=== PATIENT | female | born 1930 | race Caucasian/White ===

== ENCOUNTER 2017-07-09 20:08 | Observation (INO) | payer MEDICARE, BC ==
[~2017-07-09] VITALS: Ht 160 cm; Wt 130.0 kg
[~2017-07-09 20:08] MED LIST: ACET-75 PO; ALBU2.5V13 NEB; ASPI81TA30 PO; ATOR20TA66 PO; CALC500T12 PO; CARCD120C PO; CARV6.253 PO; CHOL100046 PO; CITA10TA9 PO; DICL100G15 TP; DOCU100C41 PO; LISI10TA4 PO; LORA0.5T PO; LORA10TA7 PO; MAGN800O PO; MELA3TAB PO; METH500T PO; MULT1TAB74 PO; NICO1PAT40 TP; NITR0.4T48 SL; PANT-47 PO; POLY119P2 PO; TICA90TA PO; TRAM50TA2 PO
[2017-07-09] MEDS ORDERED: albuterol 2.5 MG/3 ML nebule NEB ONE (20:40)
[2017-07-09 20:46] LABS: BASOPHILS % (AUTO) 0.4 % (0-1); EOSINOPHILS # (AUTO) 0.3 X10'3 (0-0.9); EOSINOPHILS % (AUTO) 3.3 % (0-6); HEMATOCRIT 34.4 % (35.0-45.0); HEMOGLOBIN 11.3 g/dl (12.0-16.0); LYMPHOCYTES # (AUTO) 1.6 X10'3 (1.1-4.8); MEAN CORPUSCULAR HEMOGLOBIN 28.6 PG (27.0-31.0); MEAN CORPUSCULAR HGB CONC 32.7 % (33.0-36.5); MEAN CORPUSCULAR VOLUME 87.3 FL (78-98); MEAN PLATELET VOLUME 7.3 FL (7.4-10.4); MONOCYTES % (AUTO) 10.9 % (2-12); NEUTROPHILS % (AUTO) 67.4 % (42-75); PLATELET COUNT 350 X10'3 (140-440); RED BLOOD COUNT 3.94 X10'6 (4.20-5.60); RED CELL DISTRIBUTION WIDTH 14.5 % (11.5-14.5); WHITE BLOOD COUNT 8.9 X10'3 (4.5-11.0)
[2017-07-09 20:57] LABS: INR 0.9 INR; PARTIAL THROMBOPLASTIN TIME 26 SECONDS (22-32); PROTHROMBIN TIME 9.8 SECONDS (9.0-12.0)
[2017-07-09 21:01] LABS: ALANINE AMINOTRANSFERASE 17 U/L (12-78); ALBUMIN 3.2 G/DL (3.4-5.0); ALBUMIN/GLOBULIN RATIO 0.9 (1.1-1.5); ALKALINE PHOSPHATASE 145 IU/L (46-116); ASPARTATE AMINO TRANSFERASE 13 U/L (10-37); BILIRUBIN,TOTAL 0.2 MG/DL (0.1-1.0); BLOOD UREA NITROGEN 21 MG/DL (7-18); BUN/CREATININE RATIO 29.2 (6.6-38.0); CALCIUM 8.8 MG/DL (8.5-10.1); CREATININE 0.72 MG/DL (0.40-0.90); GLUCOSE 119 MG/DL (70-104); POTASSIUM 4.4 MMOL/L (3.5-5.1); TOTAL PROTEIN 6.9 G/DL (6.4-8.2); eGFR 77 ML/MIN
[2017-07-09 21:08] LABS: ANION GAP 4 (8-16); CHLORIDE 102 MMOL/L (99-107); SODIUM 136 MMOL/L (135-145); TOTAL CARBON DIOXIDE 30.5 MMOL/L (24-32)
[2017-07-09] MEDS ORDERED: acetaminophen 325mg tablet PO ONE (22:45)
[2017-07-09] MEDS ORDERED: ISOS30TA9 PO (22:56)
[2017-07-09] MEDS ORDERED: CLOP75TA35 PO (22:56)
[2017-07-09] MEDS ORDERED: BISM262T14 PO (22:56)
[2017-07-09] MEDS ORDERED: OSC500T PO (22:56)
[2017-07-09] MEDS ORDERED: DICL100G15 TOP (22:56)
[2017-07-09] MEDS ORDERED: ACET-71 PO (22:56)
[2017-07-09] MEDS ORDERED: [UNRECOGNIZED DRUG - CODE] PO (22:56)
[2017-07-09] MEDS ORDERED: LISI-600 PO (22:56)
[2017-07-09] MEDS ORDERED: BISA-155 PO (22:56)
[2017-07-09] MEDS ORDERED: HYDR-565 PO (22:56)
[2017-07-09] MEDS ORDERED: ACET500C5 PO (22:56)
[2017-07-09] MEDS ORDERED: OMEP40CA37 PO (22:56)
[2017-07-10] MEDS ORDERED: normal saline 1000ml 1,000 ML IV SCH (00:01)
[2017-07-10] MEDS ORDERED: albuterol 2.5 MG/3 ML nebule NEB PRN (00:05)
[2017-07-10] MEDS ORDERED: acetaminophen 325mg tablet PO PRN (00:05)
[2017-07-10] MEDS ORDERED: ondansetron/PF 4mg/2ml inj IV PRN (00:05)
[2017-07-10] MEDS ORDERED: magnesium hydroxide 30ml (MOM) UD suspension PO PRN (00:05)
[2017-07-10] MEDS ORDERED: mag hydrox/Alum hydrox/simeth 30ml oral suspension PO PRN (00:05)
[2017-07-10 03:00] VITALS: BP 174/59
[2017-07-10 06:00] VITALS: BP 159/52
[2017-07-10] MEDS ORDERED: carvedilol 6.25mg tablet PO SCH (07:30)
[2017-07-10] MEDS ORDERED: pantoprazole 40mg Tablet.DR PO SCH (07:30)
[2017-07-10] MEDS ORDERED: isosorbide dinitrate 30mg tablet PO SCH (08:00)
[2017-07-10] MEDS ORDERED: atorvastatin 20mg tablet PO SCH (08:00)
[2017-07-10] MEDS ORDERED: heparin, porcine 5000 units/ml vial SQ SCH (08:00)
[2017-07-10] MEDS ORDERED: lisinopril 20mg tablet PO SCH (08:00)
[2017-07-10] MEDS ORDERED: clopidogrel 75mg tablet PO SCH (08:00)
[2017-07-10] MEDS ORDERED: CITALOpram 10mg tablet PO SCH (08:00)
[2017-07-10] MEDS ORDERED: aspirin 81mg tab.chew PO SCH (08:30)
[2017-07-10] MEDS ORDERED: OXYB5TAB11 PO (09:21)
[2017-07-10 10:00] VITALS: BP 138/45
== END 2017-07-10 12:40 | disposition home or self-care (01) ==
LOC: ER 20:09 → ED HOLD 07-10 00:01 → ORTHO 4S 07-10 02:42
PROVIDERS: ADMIT Internal Medicine; ATTEND Internal Medicine
DX: R07.89 Other chest pain (principal); R13.10 Dysphagia, unspecified; F41.9 Anxiety disorder, unspecified; E78.5 Hyperlipidemia, unspecified; I10 Essential (primary) hypertension; I25.10 Atherosclerotic heart disease of native coronary artery without angina pectoris; N32.81 Overactive bladder; F03.90 Unspecified dementia, unspecified severity, without behavioral disturbance, psychotic disturbance, mood disturbance, and anxiety; J44.1 Chronic obstructive pulmonary disease with (acute) exacerbation; K21.9 Gastro-esophageal reflux disease without esophagitis; J18.9 Pneumonia, unspecified organism; M54.9 Dorsalgia, unspecified; G89.29 Other chronic pain; Z87.891 Personal history of nicotine dependence; Z90.49 Acquired absence of other specified parts of digestive tract; Z90.710 Acquired absence of both cervix and uterus; Z99.81 Dependence on supplemental oxygen
CPT/HCPCS: 36415; 71045; 76700; 80053; 83880; 84484; 85025; 85610; 85730; 87070; 93005; 94640; 94760; 96360; 96372; 99285; G0378; J1644; J7030

== ENCOUNTER 2017-10-19 10:42 | Outpatient (CLI) | payer MEDICARE, BC ==
[~2017-10-19 10:42] MED LIST changes: +ACET-71 PO; +ACET500C5 PO; +BISA-155 PO; +BISM262T14 PO; -CARCD120C PO; +CLOP75TA35 PO; +DICL100G15 TOP; -DOCU100C41 PO; +HYDR-565 PO; +ISOS30TA9 PO; +LISI-600 PO; -LISI10TA4 PO; -LORA0.5T PO; -MELA3TAB PO; -METH500T PO; -NICO1PAT40 TP; +OMEP40CA37 PO; +OSC500T PO; +OXYB5TAB11 PO; -PANT-47 PO; -POLY119P2 PO; -TICA90TA PO; -TRAM50TA2 PO; +[UNRECOGNIZED DRUG - CODE] PO
[2017-10-19] MEDS ORDERED: BARIUM SULFATE 340 ML SUSP.RECON***PROCEDURE AREA ONLY**DONT ENTER PO ONE ×2 (10:45→11:00)
== END 2017-10-19 23:59 | disposition home or self-care (01) ==
LOC: RAD 10:42
PROVIDERS: ATTEND Internal Medicine
DX: R13.13 Dysphagia, pharyngeal phase (principal); J44.9 Chronic obstructive pulmonary disease, unspecified; Z90.710 Acquired absence of both cervix and uterus; Z87.891 Personal history of nicotine dependence; Z90.49 Acquired absence of other specified parts of digestive tract; Z79.82 Long term (current) use of aspirin
CPT/HCPCS: 74220

== ENCOUNTER 2018-01-08 15:21 | Emergency (ER) | payer MEDICARE, BC ==
[~2018-01-08 15:21] MED LIST changes: +HYDR-4353 PO; -HYDR-565 PO
[2018-01-08 16:19] LABS: BASOPHILS % (AUTO) 0.1 % (0-1); EOSINOPHILS % (AUTO) 0.2 % (0-6); HEMATOCRIT 39.1 % (35.0-45.0); HEMOGLOBIN 12.6 g/dl (12.0-16.0); LYMPHOCYTES # (AUTO) 0.9 X10'3 (1.1-4.8); MEAN CORPUSCULAR HEMOGLOBIN 27.9 PG (27.0-31.0); MEAN CORPUSCULAR HGB CONC 32.3 % (33.0-36.5); MEAN CORPUSCULAR VOLUME 86.3 FL (78-98); MEAN PLATELET VOLUME 7.4 FL (7.4-10.4); MONOCYTES # (AUTO) 0.9 X10'3 (0-0.9); MONOCYTES % (AUTO) 8.5 % (2-12); NEUTROPHILS # (AUTO) 9.3 X10'3 (1.8-7.7); NEUTROPHILS % (AUTO) 83.2 % (42-75); PLATELET COUNT 382 X10'3 (140-440); RED BLOOD COUNT 4.53 X10'6 (4.20-5.60); RED CELL DISTRIBUTION WIDTH 15.8 % (11.5-14.5); WHITE BLOOD COUNT 11.2 X10'3 (4.5-11.0)
[2018-01-08 16:35] LABS: ALANINE AMINOTRANSFERASE 17 U/L (12-78); ALBUMIN 3.6 G/DL (3.4-5.0); ALBUMIN/GLOBULIN RATIO 0.9 (1.1-1.5); ALKALINE PHOSPHATASE 146 IU/L (46-116); ANION GAP 5 (8-16); ASPARTATE AMINO TRANSFERASE 16 U/L (10-37); BILIRUBIN,TOTAL 0.4 MG/DL (0.1-1.0); BLOOD UREA NITROGEN 17 MG/DL (7-18); BUN/CREATININE RATIO 20.5 (6.6-38.0); CALCIUM 9.5 MG/DL (8.5-10.1); CHLORIDE 91 MMOL/L (99-107); CREATININE 0.83 MG/DL (0.40-0.90); GLUCOSE 118 MG/DL (70-104); POTASSIUM 4.4 MMOL/L (3.5-5.1); SODIUM 131 MMOL/L (135-145); TOTAL CARBON DIOXIDE 35.1 MMOL/L (24-32); TOTAL PROTEIN 7.8 G/DL (6.4-8.2); eGFR 65 ML/MIN
[2018-01-08 16:36] LABS: ABG BASE EXCESS 7.6 mmol/L (-2.0-3.0); ABG HCO3 34.4 mmol/L (22.0-26.0); ABG OXYGEN SATURATION 92.4 % (95-98); ABG PCO2 (T) 58.7 mmHg (32.0-45.0); ABG PH (T) 7.386 (7.350-7.450); ABG PO2 (T) 67.7 mmHg (83-108); FCOHb 1.3 % (0.5-1.5); FLOW 4 L/min; FMetHb 0.3 % (0.3-1.12); FO2Hb 90.9 % (94-100); RESPIRATORY RATE (OBSERVED) 16 b/min; TOTAL HEMOGLOBIN 12.8 G/dl (12.0-16.0)
[2018-01-08 16:45] LABS: PARTIAL THROMBOPLASTIN TIME 29 SECONDS (22-32); PROTHROMBIN TIME 9.9 SECONDS (9.0-12.0)
[2018-01-08 17:25] LABS: CLARITY,URINE SLIGHTLY CLOUDY (Clear); COLOR,URINE YELLOW (Yellow); GLUCOSE, URINE NEGATIVE (Neg); KETONES,URINE NEGATIVE (Neg); LEUKOCYTE ESTERASE ,URINE NEGATIVE (Neg); NITRITES, URINE NEGATIVE (Neg); OCCULT BLOOD,URINE NEGATIVE (Neg); PROTEIN,URINE 100 mg/dl (Neg); UROBILINOGEN,URINE 0.2 E.U/dL (0.2-1.0)
[2018-01-08 17:31] LABS: UA COLLECTION TYPE STRAIGHT CATH
[2018-01-08 17:33] LABS: COARSE GRANULAR CAST 0-3 /LPF (NEGATIVE); SQUAMOUS EPITHELIAL CELL,UR FEW /LPF (FEW)
[2018-01-08 17:34] LABS: BACTERIA,URINE FEW /HPF (Neg); RBC,URINE 0-2 /HPF (0-2); WBC,URINE 0-4 /HPF (0-4)
[2018-01-08 17:35] LABS: MUCUS STRANDS MODERATE /LPF (Neg)
[2018-01-08 18:06] VITALS: BP 106/74
[2018-01-08 18:36] LABS: BANDS% (MANUAL) 2 % (0-10); BASOPHILS % (MANUAL) 1 % (0-1); EOSINOPHILS % (MANUAL) 1 % (0-6); LYMPHOCYTES % (MANUAL) 10 % (21-51); MONOCYTES % (MANUAL) 8 % (2-12); NEUTROPHILS % (MANUAL) 78 % (42-75); TOTAL CELLS COUNTED 100
[2018-01-08 18:37] LABS: ANISOCYTOSIS FEW; PLATELET ESTIMATE NORMAL; POLYCHROMASIA FEW
[2018-01-08 18:38] LABS: TOXIC VACUOLATION 1+
== END 2018-01-08 18:08 | disposition home or self-care (01) ==
LOC: ER 15:23
DX: S00.83XA Contusion of other part of head, initial encounter (principal); R01.1 Cardiac murmur, unspecified; I10 Essential (primary) hypertension; J44.9 Chronic obstructive pulmonary disease, unspecified; K21.9 Gastro-esophageal reflux disease without esophagitis; G89.29 Other chronic pain; Z88.1 Allergy status to other antibiotic agents; Z88.5 Allergy status to narcotic agent; Z88.8 Allergy status to other drugs, medicaments and biological substances; Z79.82 Long term (current) use of aspirin; Z79.899 Other long term (current) drug therapy; Z90.710 Acquired absence of both cervix and uterus; Z98.890 Other specified postprocedural states; W18.39XA Other fall on same level, initial encounter; Y93.89 Activity, other specified; Y92.89 Other specified places as the place of occurrence of the external cause; Y99.8 Other external cause status
CPT/HCPCS: 36415; 36600; 70450; 71045; 72125; 80053; 81001; 82803; 83735; 84484; 85018; 85025; 85610; 85730; 93005; 99284; P9612

== ENCOUNTER 2018-01-12 12:47 | Inpatient (IN) | payer MEDICARE, BC ==
[~2018-01-12] VITALS: Ht 172.7 cm; Wt 59.0 kg
[2018-01-12] MEDS ORDERED: methylPREDNISolone sod succ 125mg/2ml vial IV ONE (13:35)
[2018-01-12] MEDS ORDERED: ipratropium/albuterol 3ml nebule NEB ONE (13:35)
[2018-01-12] MEDS ORDERED: ISOS30TA6 PO (14:09)
[2018-01-12] MEDS ORDERED: OXYB15TA PO (14:09)
[2018-01-12] MEDS ORDERED: ACET-2119 PO (14:09)
[2018-01-12] MEDS ORDERED: ACET-2812 (14:09)
[2018-01-12] MEDS ORDERED: ALBU8HFA PO (14:09)
[2018-01-12 14:17] LABS: BASOPHILS % (AUTO) 0.2 % (0-1); EOSINOPHILS % (AUTO) 0 % (0-6); HEMATOCRIT 35.2 % (35.0-45.0); HEMOGLOBIN 11.4 g/dl (12.0-16.0); LYMPHOCYTES # (AUTO) 0.9 X10'3 (1.1-4.8); LYMPHOCYTES % (AUTO) 6.9 % (21-51); MEAN CORPUSCULAR HGB CONC 32.4 % (33.0-36.5); MEAN CORPUSCULAR VOLUME 86.4 FL (78-98); MEAN PLATELET VOLUME 7.2 FL (7.4-10.4); MONOCYTES # (AUTO) 1.1 X10'3 (0-0.9); MONOCYTES % (AUTO) 8.3 % (2-12); NEUTROPHILS # (AUTO) 11.5 X10'3 (1.8-7.7); NEUTROPHILS % (AUTO) 84.6 % (42-75); PLATELET COUNT 380 X10'3 (140-440); RED BLOOD COUNT 4.07 X10'6 (4.20-5.60); RED CELL DISTRIBUTION WIDTH 16.3 % (11.5-14.5); WHITE BLOOD COUNT 13.6 X10'3 (4.5-11.0)
[2018-01-12 14:45] LABS: ALANINE AMINOTRANSFERASE 24 U/L (12-78); ALBUMIN/GLOBULIN RATIO 0.7 (1.1-1.5); ALKALINE PHOSPHATASE 141 IU/L (46-116); ANION GAP 5 (8-16); ASPARTATE AMINO TRANSFERASE 20 U/L (10-37); BILIRUBIN,TOTAL 0.4 MG/DL (0.1-1.0); BLOOD UREA NITROGEN 10 MG/DL (7-18); BUN/CREATININE RATIO 19.2 (6.6-38.0); CALCIUM 8.8 MG/DL (8.5-10.1); CHLORIDE 91 MMOL/L (99-107); CREATININE 0.52 MG/DL (0.40-0.90); GLUCOSE 103 MG/DL (70-104); SODIUM 129 MMOL/L (135-145); TOTAL CARBON DIOXIDE 33.1 MMOL/L (24-32); TOTAL PROTEIN 7.1 G/DL (6.4-8.2); eGFR > 90 ML/MIN
[2018-01-12] MEDS ORDERED: CefTRIAXone/D5W-Rocephin 1gm 50 ML IV ONE (15:05)
[2018-01-12 15:10] LABS: PARTIAL THROMBOPLASTIN TIME 28 SECONDS (22-32); PROTHROMBIN TIME 10.5 SECONDS (9.0-12.0)
[2018-01-12] MEDS ORDERED: magnesium Cl slow-release 64mg tablet PO PRN (16:30)
[2018-01-12] MEDS ORDERED: potassium Cl 40MEQ/NS 500ml 500 ML IV PRN ×2 (16:30)
[2018-01-12] MEDS ORDERED: potassium Cl 20 mEq SR tablet PO PRN ×2 (16:30)
[2018-01-12] MEDS ORDERED: magnesium hydroxide 30ml (MOM) UD suspension PO PRN (16:30)
[2018-01-12] MEDS ORDERED: mag hydrox/Alum hydrox/simeth 30ml oral suspension PO PRN (16:30)
[2018-01-12] MEDS ORDERED: magnesium 4gm in 100ml NS 100 ML IV PRN (16:30)
[2018-01-12] MEDS ORDERED: ondansetron/PF 4mg/2ml inj IV PRN (16:30)
[2018-01-12] MEDS ORDERED: calcium carbonate 500mg chew tablet PO PRN (16:35)
[2018-01-12] MEDS ORDERED: bisacodyl 5mg tablet.DR PO PRN (16:35)
[2018-01-12] MEDS ORDERED: albuterol 2.5 MG/3 ML nebule NEB PRN (16:35)
[2018-01-12] MEDS ORDERED: nitroGLYCERIN 0.4mg SUBLingual tab SL SCH (16:35)
[2018-01-12] MEDS: CefTRIAXone/D5W-Rocephin 1gm 50 ML IV SCH (16:45)
[2018-01-12] MEDS ORDERED: azithromycin/NS 500mg/250ml 250 ML IV ONE (16:45)
[2018-01-12] MEDS: carvedilol 6.25mg tablet PO SCH (21:33)
[2018-01-12] MEDS: furosemide 20 MG/2 ML vial IV SCH (21:39)
[2018-01-12] MEDS: heparin, porcine 5000 units/ml vial SQ SCH (21:41)
[2018-01-12 22:00] VITALS: BP 139/77
[2018-01-13] MEDS: methylPREDNISolone sod succ/PF 40mg inj. IV SCH ×3 (00:50→16:01)
[2018-01-13 02:00] VITALS: BP 153/54
[2018-01-13] MEDS: acetaminophen 325mg tablet PO PRN ×2 (02:06→20:16)
[2018-01-13 06:00] VITALS: BP 153/61
[2018-01-13 06:08] LABS: BASOPHILS % (AUTO) 0 % (0-1); EOSINOPHILS % (AUTO) 0 % (0-6); HEMATOCRIT 36.5 % (35.0-45.0); HEMOGLOBIN 11.8 g/dl (12.0-16.0); LYMPHOCYTES # (AUTO) 0.5 X10'3 (1.1-4.8); LYMPHOCYTES % (AUTO) 6.2 % (21-51); MEAN CORPUSCULAR HEMOGLOBIN 27.9 PG (27.0-31.0); MEAN CORPUSCULAR HGB CONC 32.2 % (33.0-36.5); MEAN CORPUSCULAR VOLUME 86.4 FL (78-98); MEAN PLATELET VOLUME 7.7 FL (7.4-10.4); MONOCYTES # (AUTO) 0.1 X10'3 (0-0.9); MONOCYTES % (AUTO) 1.5 % (2-12); NEUTROPHILS # (AUTO) 7.4 X10'3 (1.8-7.7); NEUTROPHILS % (AUTO) 92.3 % (42-75); PLATELET COUNT 408 X10'3 (140-440); RED BLOOD COUNT 4.23 X10'6 (4.20-5.60); RED CELL DISTRIBUTION WIDTH 15.6 % (11.5-14.5)
[2018-01-13 07:03] LABS: ALANINE AMINOTRANSFERASE 22 U/L (12-78); ALBUMIN 3.1 G/DL (3.4-5.0); ALBUMIN/GLOBULIN RATIO 0.7 (1.1-1.5); ALKALINE PHOSPHATASE 144 IU/L (46-116); ANION GAP 8 (8-16); ASPARTATE AMINO TRANSFERASE 16 U/L (10-37); BILIRUBIN,TOTAL 0.3 MG/DL (0.1-1.0); BLOOD UREA NITROGEN 13 MG/DL (7-18); BUN/CREATININE RATIO 20.3 (6.6-38.0); CALCIUM 9.4 MG/DL (8.5-10.1); CHLORIDE 91 MMOL/L (99-107); CREATININE 0.64 MG/DL (0.40-0.90); GLUCOSE 160 MG/DL (70-104); MAGNESIUM 1.8 MG/DL (1.5-2.4); POTASSIUM 3.9 MMOL/L (3.5-5.1); SODIUM 132 MMOL/L (135-145); TOTAL CARBON DIOXIDE 32.7 MMOL/L (24-32); TOTAL PROTEIN 7.5 G/DL (6.4-8.2); eGFR 88 ML/MIN
[2018-01-13] MEDS: K and/or MAG REPLACEMENT MC SCH (08:00)
[2018-01-13] MEDS: loratadine 10mg tablet PO SCH (08:38)
[2018-01-13] MEDS: isosorbide mononitrate 30mg tab.SR.24H PO SCH (08:38)
[2018-01-13] MEDS: oxybutynin 5mg tablet PO SCH ×3 (08:38→20:16)
[2018-01-13] MEDS: citalopram 20mg tablet PO SCH (08:38)
[2018-01-13] MEDS: pantoprazole 40mg Tablet.DR PO SCH (08:38)
[2018-01-13] MEDS: clopidogrel 75mg tablet PO SCH (08:38)
[2018-01-13] MEDS: lisinopril 20mg tablet PO SCH (08:38)
[2018-01-13] MEDS: aspirin 81mg tab.chew PO SCH (08:39)
[2018-01-13] MEDS: heparin, porcine 5000 units/ml vial SQ SCH ×2 (08:39→20:15)
[2018-01-13] MEDS: CefTRIAXone/D5W-Rocephin 1gm 50 ML IV SCH (08:40)
[2018-01-13] MEDS: carvedilol 6.25mg tablet PO SCH ×2 (08:40→20:00)
[2018-01-13] MEDS: furosemide 20 MG/2 ML vial IV SCH ×2 (08:40→20:00)
[2018-01-13] MEDS: atorvastatin 20mg tablet PO SCH (08:40)
[2018-01-13 10:21] LABS: ABG BASE EXCESS 15.4 mmol/L (-2.0-3.0); ABG HCO3 41.7 mmol/L (22.0-26.0); ABG OXYGEN SATURATION 90.5 % (95-98); ABG PCO2 (T) 59.5 mmHg (32.0-45.0); ABG PH (T) 7.464 (7.350-7.450); ABG PO2 (T) 60.1 mmHg (83-108); ALLEN'S TEST Positive; FCOHb 0.7 % (0.5-1.5); FLOW 5 L/min; FMetHb 0.1 % (0.3-1.12); FO2Hb 89.8 % (94-100); TOTAL HEMOGLOBIN 12.1 G/dl (12.0-16.0)
[2018-01-13 11:00] VITALS: BP 118/49
[2018-01-13 18:00] VITALS: BP 97/31
[2018-01-13 20:17] VITALS: BP 98/34
[2018-01-14] MEDS: methylPREDNISolone sod succ/PF 40mg inj. IV SCH ×3 (00:02→15:37)
[2018-01-14] MEDS: acetaminophen 325mg tablet PO PRN ×2 (02:34→22:04)
[2018-01-14] MEDS: pantoprazole 40mg Tablet.DR PO SCH (07:30)
[2018-01-14] MEDS: loratadine 10mg tablet PO SCH (08:00)
[2018-01-14] MEDS: furosemide 20 MG/2 ML vial IV SCH ×2 (08:00→21:06)
[2018-01-14] MEDS: atorvastatin 20mg tablet PO SCH (08:00)
[2018-01-14] MEDS: lisinopril 20mg tablet PO SCH (08:00)
[2018-01-14] MEDS: isosorbide mononitrate 30mg tab.SR.24H PO SCH (08:00)
[2018-01-14] MEDS: heparin, porcine 5000 units/ml vial SQ SCH ×2 (08:00→21:07)
[2018-01-14] MEDS: carvedilol 6.25mg tablet PO SCH ×2 (08:00→21:07)
[2018-01-14] MEDS: CefTRIAXone/D5W-Rocephin 1gm 50 ML IV SCH (08:00)
[2018-01-14] MEDS: citalopram 20mg tablet PO SCH (08:00)
[2018-01-14] MEDS: K and/or MAG REPLACEMENT MC SCH (08:00)
[2018-01-14] MEDS: clopidogrel 75mg tablet PO SCH (08:00)
[2018-01-14] MEDS: oxybutynin 5mg tablet PO SCH ×3 (08:00→21:08)
[2018-01-14] MEDS: aspirin 81mg tab.chew PO SCH (08:30)
[2018-01-14 19:30] VITALS: BP 117/56
[2018-01-15] MEDS: methylPREDNISolone sod succ/PF 40mg inj. IV SCH ×2 (01:15→08:00)
[2018-01-15 05:35] LABS: BASOPHILS % (AUTO) 0.1 % (0-1); EOSINOPHILS % (AUTO) 0 % (0-6); HEMATOCRIT 38.2 % (35.0-45.0); HEMOGLOBIN 12.3 g/dl (12.0-16.0); LYMPHOCYTES # (AUTO) 0.5 X10'3 (1.1-4.8); LYMPHOCYTES % (AUTO) 4.3 % (21-51); MEAN CORPUSCULAR HEMOGLOBIN 27.7 PG (27.0-31.0); MEAN CORPUSCULAR HGB CONC 32.2 % (33.0-36.5); MEAN CORPUSCULAR VOLUME 85.8 FL (78-98); MEAN PLATELET VOLUME 6.9 FL (7.4-10.4); MONOCYTES # (AUTO) 0.6 X10'3 (0-0.9); MONOCYTES % (AUTO) 5.8 % (2-12); NEUTROPHILS # (AUTO) 9.6 X10'3 (1.8-7.7); NEUTROPHILS % (AUTO) 89.8 % (42-75); PLATELET COUNT 541 X10'3 (140-440); RED BLOOD COUNT 4.45 X10'6 (4.20-5.60); RED CELL DISTRIBUTION WIDTH 16.2 % (11.5-14.5); WHITE BLOOD COUNT 10.7 X10'3 (4.5-11.0)
[2018-01-15 05:57] LABS: ALANINE AMINOTRANSFERASE 20 U/L (12-78); ALBUMIN 3.1 G/DL (3.4-5.0); ALBUMIN/GLOBULIN RATIO 0.8 (1.1-1.5); ALKALINE PHOSPHATASE 102 IU/L (46-116); ANION GAP 4 (8-16); ASPARTATE AMINO TRANSFERASE 11 U/L (10-37); BILIRUBIN,TOTAL 0.3 MG/DL (0.1-1.0); BLOOD UREA NITROGEN 28 MG/DL (7-18); BUN/CREATININE RATIO 33.3 (6.6-38.0); CALCIUM 9.2 MG/DL (8.5-10.1); CHLORIDE 91 MMOL/L (99-107); CREATININE 0.84 MG/DL (0.40-0.90); GLUCOSE 160 MG/DL (70-104); POTASSIUM 3.2 MMOL/L (3.5-5.1); SODIUM 135 MMOL/L (135-145); TOTAL CARBON DIOXIDE 39.8 MMOL/L (24-32); eGFR 64 ML/MIN
[2018-01-15 06:00] VITALS: BP 93/75
[2018-01-15] MEDS: K and/or MAG REPLACEMENT MC SCH (07:17)
[2018-01-15] MEDS: lisinopril 20mg tablet PO SCH (08:00)
[2018-01-15] MEDS: furosemide 20 MG/2 ML vial IV SCH (08:00)
[2018-01-15] MEDS: CefTRIAXone/D5W-Rocephin 1gm 50 ML IV SCH (08:00)
[2018-01-15] MEDS: aspirin 81mg tab.chew PO SCH (08:30)
[2018-01-15 09:43] VITALS: BP 153/50
[2018-01-15] MEDS: citalopram 20mg tablet PO SCH (10:17)
[2018-01-15] MEDS: pantoprazole 40mg Tablet.DR PO SCH (10:18)
[2018-01-15] MEDS: loratadine 10mg tablet PO SCH (10:18)
[2018-01-15] MEDS: carvedilol 6.25mg tablet PO SCH (10:18)
[2018-01-15] MEDS: isosorbide mononitrate 30mg tab.SR.24H PO SCH (10:18)
[2018-01-15] MEDS: oxybutynin 5mg tablet PO SCH ×3 (10:18→21:08)
[2018-01-15] MEDS: atorvastatin 20mg tablet PO SCH (10:19)
[2018-01-15] MEDS: clopidogrel 75mg tablet PO SCH (10:19)
[2018-01-15] MEDS: heparin, porcine 5000 units/ml vial SQ SCH ×2 (10:31→21:09)
[2018-01-15 11:00] VITALS: BP 117/57
[2018-01-15 15:00] VITALS: BP 116/39
[2018-01-15 18:30] VITALS: BP 145/79
[2018-01-15] MEDS: ipratropium/albuterol 3ml nebule NEB SCH ×2 (19:34→23:43)
[2018-01-15] MEDS ORDERED: methylPREDNISolone sod succ/PF 40mg inj. IV SCH (20:00)
[2018-01-15] MEDS: carVEDilol 3.125mg tablet PO SCH (21:08)
[2018-01-15 22:00] VITALS: BP 108/69
[2018-01-16] MEDS: ipratropium/albuterol 3ml nebule NEB SCH ×3 (03:30→11:00)
[2018-01-16] MEDS: K and/or MAG REPLACEMENT MC SCH (07:53)
[2018-01-16] MEDS ORDERED: furosemide 20MG tablet PO SCH (08:00)
[2018-01-16] MEDS ORDERED: prednisone 10mg tablet PO SCH (08:30)
[2018-01-16] MEDS: citalopram 20mg tablet PO SCH (09:06)
[2018-01-16] MEDS: heparin, porcine 5000 units/ml vial SQ SCH (09:07)
[2018-01-16] MEDS: carVEDilol 3.125mg tablet PO SCH (09:09)
[2018-01-16] MEDS: isosorbide mononitrate 30mg tab.SR.24H PO SCH (09:09)
[2018-01-16] MEDS: oxybutynin 5mg tablet PO SCH (09:09)
[2018-01-16] MEDS: loratadine 10mg tablet PO SCH (09:10)
[2018-01-16] MEDS: atorvastatin 20mg tablet PO SCH (09:10)
[2018-01-16] MEDS: clopidogrel 75mg tablet PO SCH (09:11)
[2018-01-16] MEDS: aspirin 81mg tab.chew PO SCH (09:11)
[2018-01-16 09:13] LABS: BASOPHILS % (AUTO) 0.2 % (0-1); EOSINOPHILS # (AUTO) 0.2 X10'3 (0-0.9); EOSINOPHILS % (AUTO) 0.8 % (0-6); HEMOGLOBIN 13.3 g/dl (12.0-16.0); LYMPHOCYTES # (AUTO) 0.6 X10'3 (1.1-4.8); LYMPHOCYTES % (AUTO) 3.1 % (21-51); MEAN CORPUSCULAR HEMOGLOBIN 27.6 PG (27.0-31.0); MEAN CORPUSCULAR HGB CONC 31.7 % (33.0-36.5); MONOCYTES # (AUTO) 1.3 X10'3 (0-0.9); MONOCYTES % (AUTO) 6.4 % (2-12); NEUTROPHILS # (AUTO) 17.8 X10'3 (1.8-7.7); NEUTROPHILS % (AUTO) 89.5 % (42-75); PLATELET COUNT 598 X10'3 (140-440); RED BLOOD COUNT 4.83 X10'6 (4.20-5.60); RED CELL DISTRIBUTION WIDTH 16.2 % (11.5-14.5); WHITE BLOOD COUNT 19.9 X10'3 (4.5-11.0)
[2018-01-16] MEDS: lisinopril 20mg tablet PO SCH (09:14)
[2018-01-16 09:15] VITALS: BP 150/92
[2018-01-16] MEDS: pantoprazole 40mg Tablet.DR PO SCH (09:17)
[2018-01-16 09:32] LABS: ALANINE AMINOTRANSFERASE 20 U/L (12-78); ALBUMIN 3.1 G/DL (3.4-5.0); ALBUMIN/GLOBULIN RATIO 0.8 (1.1-1.5); ALKALINE PHOSPHATASE 100 IU/L (46-116); ANION GAP 7 (8-16); BILIRUBIN,TOTAL 0.4 MG/DL (0.1-1.0); BLOOD UREA NITROGEN 27 MG/DL (7-18); CALCIUM 9.1 MG/DL (8.5-10.1); CHLORIDE 91 MMOL/L (99-107); CREATININE 0.87 MG/DL (0.40-0.90); GLUCOSE 171 MG/DL (70-104); MAGNESIUM 2.2 MG/DL (1.5-2.4); SODIUM 136 MMOL/L (135-145); TOTAL CARBON DIOXIDE 37.8 MMOL/L (24-32); TOTAL PROTEIN 6.9 G/DL (6.4-8.2); eGFR 62 ML/MIN
[2018-01-16 09:35] LABS: ASPARTATE AMINO TRANSFERASE 18 U/L (10-37); POTASSIUM 3.6 MMOL/L (3.5-5.1)
[2018-01-16] MEDS ORDERED: levoFLOXACIN 500mg tablet PO SCH (11:00)
== END 2018-01-16 12:05 | disposition hospice, home (50) | DRG 177 ==
LOC: ER 12:48 → ED HOLD 16:27 → PCU 3S 19:20
PROVIDERS: ADMIT Internal Medicine; ATTEND Family Medicine
DX: J69.0 Pneumonitis due to inhalation of food and vomit (principal); J96.01 Acute respiratory failure with hypoxia; J44.1 Chronic obstructive pulmonary disease with (acute) exacerbation; R65.10 Systemic inflammatory response syndrome (SIRS) of non-infectious origin without acute organ dysfunction; S00.83XA Contusion of other part of head, initial encounter; G89.29 Other chronic pain; I27.20 Pulmonary hypertension, unspecified; I11.0 Hypertensive heart disease with heart failure; M54.9 Dorsalgia, unspecified; I50.9 Heart failure, unspecified; R54 Age-related physical debility; I25.10 Atherosclerotic heart disease of native coronary artery without angina pectoris; K21.9 Gastro-esophageal reflux disease without esophagitis; Z51.5 Encounter for palliative care; Z66 Do not resuscitate; Z90.49 Acquired absence of other specified parts of digestive tract; Z90.710 Acquired absence of both cervix and uterus; Z88.1 Allergy status to other antibiotic agents; Z88.5 Allergy status to narcotic agent; Z88.8 Allergy status to other drugs, medicaments and biological substances; Z79.899 Other long term (current) drug therapy; Z79.02 Long term (current) use of antithrombotics/antiplatelets; Z79.82 Long term (current) use of aspirin; Z87.440 Personal history of urinary (tract) infections
CPT/HCPCS: 36415; 36600; 70450; 71045; 80053; 82803; 83605; 83735; 83880; 84484; 85018; 85025; 85610; 85730; 87040; 87070; 87502; 87503; 93005; 93306; 94640; 94760; 96365; 96375; 97110; 97162; 99285; G0378; J0456; J0696; J1644; J1940; J2920; J2930; J7512